=== PATIENT | male | born 1965 ===

== ENCOUNTER 2018-02-16 08:24 | Emergency (ER) | payer OTHER, MEDICARE ==
[~2018-02-16] VITALS: Ht 167.6 cm; Wt 63.5 kg
[~2018-02-16 08:24] MED LIST: ACET325 PO; ALEN70 PO; ASPI81CH PO; ATOR40TA PO; CALCA500CH PO; CARB200 PO; CARB200ER PO; CARV6.25 PO; CETI5 PO; CHOL10002 PO; CITA20; CITA20 PO; CLON.5 PO; CYCL10 PO; Calcium Carbon650 MG PO; Colace250 MG PO; DIVA500EC; DIVA500EC PO; DIVA500ER; DIVA500ER PO; Diclofenac Sodi50 MG PO; FERROUS SULFATE; FOLI1; FOLI1 PO; FURO40 PO; Ferrous Sulfat325 M2 PO; GABA100 PO; HYDACE5 PO; HYDPAM25 PO; HYDPAM50 PO; LEVE500; LEVE500 PO; LEVSOD50 PO; LOSA50 PO; MULVITA PO; MULVITMIND PO; NAPR550 PO; OMEP20ER PO; Omeprazole20 M1 PO; POTA8 PO; PREG150 PO; PREG200 PO; QUET25 PO; RANI150 PO; SILD50TA PO; SIMV40 PO; Seroquel Xr50 MG PO; THIA100 PO; VITAMIN B12-FO1 EACH PO; VITAMIN D50000 UNIT PO; Ventolin/Prove6.7 GM INH; ZOLM5ODT MM
[2018-02-16 09:01] LABS: BASOPHILS ABSOLUTE AUTO 0.04 K/mm3 (0.00-0.23); BASOPHILS PERCENT AUTO 0 % (0-2); EOSINOPHILS ABSOLUTE AUTO 0.02 K/mm3 (0.00-0.68); EOSINOPHILS PERCENT AUTO 0 % (0-6); Hematocrit 45.1 % (37.0-53.0); Hemoglobin 14.5 g/dL (13.5-17.5); IMMATURE GRAN ABSOLUTE AUTO 0.03 K/mm3 (0.00-0.10); IMMATURE GRAN PERCENT AUTO 0 % (0-1); LYMPHOCYTES ABSOLUTE AUTO 3.31 K/mm3 (0.84-5.20); LYMPHOCYTES PERCENT AUTO 34 % (21-46); MONOCYTES ABSOLUTE AUTO 0.92 K/mm3 (0.16-1.47); MONOCYTES PERCENT AUTO 9 % (4-13); Mean Corpuscular HGB 32.1 pg (26.0-34.0); Mean Corpuscular HGB Conc 32.2 g/dL (31.5-36.5); Mean Corpuscular Volume 100 fL (80-100); Mean Platelet Volume 9.9 fL (9.1-12.4); NEUTROPHILS ABSOLUTE AUTO 5.55 K/mm3 (1.96-9.15); NEUTROPHILS PERCENT AUTO 56 % (41-73); Platelet Count 242 K/mm3 (150-400); RDW Coefficient Variation 14.1 % (11.7-14.2); RDW Standard Deviation 51.8 fL (35.1-46.3); Red Blood Cell Count 4.52 M/mm3 (4.30-5.90); White Blood Cell Count 9.87 K/mm3 (4.00-11.30)
[2018-02-16 09:12] LABS: International Normalized Ratio 1.04; Prothrombin Time Results 10.7 Sec (9.7-11.5)
[2018-02-16 09:23] LABS: Valproic Acid 65.4 ug/mL (50.0-100.0)
[2018-02-16 09:24] LABS: Alanine Aminotransfer (ALT/SGP 26 U/L (12-78); Albumin, Blood 3.8 g/dL (3.4-5.0); Alk Phos 63 U/L (50-136); Anion Gap 14 mmol/L (6-16); Aspartate Aminotrans (AST/SGOT 31 U/L (12-37); Bilirubin, Total 0.3 mg/dL (0.1-1.0); Blood Urea Nitrogen 13 mg/dL (8-24); CO2, Blood 19 mmol/L (21-32); Chloride, Blood 111 mmol/L (98-108); Creatinine, Blood 0.81 mg/dL (0.60-1.20); Ethanol (Alcohol), Blood, Med <3 mg/dL; Globulin, Blood 3.8 g/dL (2.2-4.0); Glomerular Filtration Rate >60 (60-); Glucose, Blood 96 mg/dL (70-99); Magnesium, Blood 2.2 mg/dL (1.6-2.4); Potassium, Blood 4.7 mmol/L (3.5-5.5); Sodium, Blood 144 mmol/L (136-145); Total Protein, Blood 7.6 g/dL (6.4-8.2); Troponin I <0.015 ng/mL (0.000-0.040)
[2018-02-16] MEDS ORDERED: OLAN10 PO (09:50)
[2018-02-16 09:51] LABS: U Amphetamine Screen Not Detected; U Barbituate Screen Not Detected; U Benzodiazapine Screen Not Detected; U Methamphetamine Screen Not Detected
[2018-02-16] MEDS ORDERED: ZONI100 PO ×2 (09:51)
[2018-02-16 09:52] LABS: U Buprenorphine Screen Not Detected; U Cannabinoids Screen DETECTED; U Cocaine Screen Not Detected; U Methadone Screen Not Detected; U Opiates Screen Not Detected; U Oxycodone Screen Not Detected; U Phencyclidine Screen Not Detected; U Propoxyphene Screen Not Detected
[2018-02-16 09:55] LABS: Bilirubin, Urine Neg (Neg); Blood, Urine 2+ (Neg); Color, Urine Yellow (P-Yellow); Glucose Qualitative, Urine Neg (Neg); Ketones, Urine 1+ (Neg); Leukocyte Esterase, Urine 1+ (Neg); Nitrite, Urine Neg (Neg); Protein, Urine 2+ (Neg); Urobilinogen, Urine NORM (Normal)
[2018-02-16] MEDS ORDERED: CYCL10 PO (09:55)
[2018-02-16] MEDS ORDERED: ATOR40TA PO (09:55)
[2018-02-16] MEDS ORDERED: CHOL10002 PO (09:55)
[2018-02-16 09:56] LABS: Appearance, Urine Clear (Clear); Red Blood Cells, Urine 0-2 /hpf (0-2); Squamous Epithelial Cells Not Seen /hpf (Few); White Blood Cells, Urine 0-2 /hpf (0-5)
[2018-02-16] MEDS ORDERED: DICL25ER PO (09:56)
[2018-02-16] MEDS ORDERED: DIVA500EC PO ×2 (09:56→09:57)
[2018-02-16 09:57] LABS: Bacteria Rare /hpf
== END 2018-02-16 13:41 | disposition home or self-care (01) ==
LOC: ER 08:24
PROVIDERS: Emergency Medicine
DX: G40.909 Epilepsy, unspecified, not intractable, without status epilepticus (principal); Z91.030 Bee allergy status; Z88.8 Allergy status to other drugs, medicaments and biological substances; Z79.899 Other long term (current) drug therapy; F17.200 Nicotine dependence, unspecified, uncomplicated
CPT/HCPCS: 36415; 70450; 71045; 80053; 80164; 81001; 83735; 84484; 85025; 85610; 87086; 93005; 93010; 96361; 96374; 99285-25; G0480; J2060; J7030

== ENCOUNTER 2018-02-22 13:15 | Emergency (ER) | payer OTHER, MEDICARE ==
[~2018-02-22] VITALS: Ht 185.4 cm; Wt 70.3 kg
[~2018-02-22 13:15] MED LIST changes: +DICL25ER PO; +OLAN10 PO; +ZONI100 PO
[2018-02-22] MEDS ORDERED: LORA1 PO (13:54)
[2018-02-22] MEDS ORDERED: Percocet 7.5-31 EACH PO (14:39)
== END 2018-02-22 15:04 | disposition home or self-care (01) ==
LOC: ER 13:15
DX: S42.471A Displaced transcondylar fracture of right humerus, initial encounter for closed fracture (principal); G40.909 Epilepsy, unspecified, not intractable, without status epilepticus; M81.0 Age-related osteoporosis without current pathological fracture; F32.9 Major depressive disorder, single episode, unspecified; F17.200 Nicotine dependence, unspecified, uncomplicated; Z79.899 Other long term (current) drug therapy; W19.XXXA Unspecified fall, initial encounter
CPT/HCPCS: 29105; 96374; 99284-25; J1170

== ENCOUNTER 2023-12-25 12:05 | Emergency (ER) | payer OTHER ==
[~2023-12-25] VITALS: Ht 182.9 cm; Wt 59.0 kg
[~2023-12-25 12:05] MED LIST changes: +KETO10 PO; +LORA1 PO; +ONDA4ODT MM; +PREG100; +Percocet 7.5-31 EACH PO
[2023-12-25 13:10] LABS: Source, Urine Clean Catch
[2023-12-25 13:19] LABS: BASOPHILS ABSOLUTE AUTO 0.05 K/mm3 (0.00-0.23); BASOPHILS PERCENT AUTO 1 % (0-2); EOSINOPHILS ABSOLUTE AUTO 0.07 K/mm3 (0.00-0.68); EOSINOPHILS PERCENT AUTO 1 % (0-6); Hematocrit 39.9 % (37.0-53.0); Hemoglobin 13.3 g/dL (13.5-17.5); IMMATURE GRAN ABSOLUTE AUTO 0.02 K/mm3 (0.00-0.10); IMMATURE GRAN PERCENT AUTO 0 % (0-1); LYMPHOCYTES ABSOLUTE AUTO 2.15 K/mm3 (0.84-5.20); LYMPHOCYTES PERCENT AUTO 30 % (21-46); MONOCYTES ABSOLUTE AUTO 0.69 K/mm3 (0.16-1.47); MONOCYTES PERCENT AUTO 10 % (4-13); Mean Corpuscular HGB 30.7 pg (26.0-34.0); Mean Corpuscular HGB Conc 33.3 g/dL (31.5-36.5); Mean Corpuscular Volume 92 fL (80-100); Mean Platelet Volume 10.4 fL (9.1-12.4); NEUTROPHILS ABSOLUTE AUTO 4.26 K/mm3 (1.96-9.15); NEUTROPHILS PERCENT AUTO 59 % (41-73); Platelet Count 213 K/mm3 (150-400); RDW Coefficient Variation 17.8 % (11.7-14.2); Red Blood Cell Count 4.33 M/mm3 (4.30-5.90); White Blood Cell Count 7.24 K/mm3 (4.00-11.30)
[2023-12-25 13:19] LABS: Appearance, Urine Clear (Clear); Bilirubin, Urine Neg (Neg); Blood, Urine Neg (Neg); Color, Urine Yellow (P-Yellow); Glucose Qualitative, Urine Neg (Neg); Ketones, Urine Neg (Neg); Leukocyte Esterase, Urine Neg (Neg); Nitrite, Urine Neg (Neg); Protein, Urine Neg (Neg); Specific Gravity, Urine 1.005 (1.003-1.022); Urobilinogen, Urine NORM (Normal)
[2023-12-25] MEDS ORDERED: Ketorolac Tromethamine 15mg Vial IV ONE (13:25)
[2023-12-25 13:28] LABS: Albumin, Blood 3.1 g/dL (3.4-5.0); Albumin/Globulin Ratio 0.7 (0.8-1.8); Bilirubin, Total 0.3 mg/dL (0.1-1.0); Bun/Creatinine Ratio 22.3 (12.0-20.0); Calcium, Blood 8.6 mg/dL (8.5-10.1); Creatinine, Blood 0.49 mg/dL (0.60-1.20); Globulin, Blood 4.3 g/dL (2.2-4.0); Potassium, Blood 4.1 mmol/L (3.5-5.5); Total Protein, Blood 7.4 g/dL (6.4-8.2)
[2023-12-25 14:22] VITALS: BP 108/68
== END 2023-12-25 14:58 | disposition home or self-care (01) ==
LOC: ER 12:05
PROVIDERS: Physician Assistant
DX: M54.50 Low back pain, unspecified (principal); G89.29 Other chronic pain; F17.200 Nicotine dependence, unspecified, uncomplicated
CPT/HCPCS: 72100; 80053; 81003; 85025; 96374; 99283-25; J1885